=== PATIENT | male | born 1955 | race Caucasian/White ===

== ENCOUNTER 2021-08-15 20:37 | Emergency (ER) | payer BC ==
[~2021-08-15] VITALS: Ht 188 cm; Wt 95.2 kg
[2021-08-15 20:50] VITALS: BP 173/105
[2021-08-15] MEDS ORDERED: TETRACAINE 0.5% OPHTH SOLN 4 ML BTL (SINGLE DOSE ONLY) OU ONE (21:00)
[2021-08-15] MEDS ORDERED: BSS 15 ML IR ONE (21:00)
[2021-08-15] MEDS ORDERED: FLUORESCEIN (FLUOR-I-STRIPS) 1 MG STRP OU ONE (21:00)
--- NOTE | 2021-08-15 21:05 | ED EENT ---
History of Present Illness General Chief Complaint: Eye Problems Stated Complaint: R EYE IRRITATION Source: patient Exam Limitations: no limitations History of Present Illness Date Seen by Provider: Aug 15, 2021 Time Seen by Provider: 21:00 Initial Comments Patient is a 66-year-old male who presents to the emergency department today with a chief complaint of foreign body sensation to the right eye. He had been moving all day, plants and boxes and feels like something might have gotten into it. Patient was driving, felt like something was in his eye he went to rub the outside portion of it and it started tearing and he had increasing discomfort. Feels like the right eye is a little bit blurry. Visual acuity in the right eyes 20/50 in the left is 20/30. He has not irrigated it with anything or put any topical drops in it. He does not wear contacts or glasses. No recent illnesses, fevers, chills, cough or congestion. He is treated for hypertension. No local physician. All other review of systems reviewed and negative except as stated. Timing/Duration: abrupt Location: eye (R) Prearrival Treatment: no prearrival treatment Associated Symptoms: denies symptoms Allergies and Home Medications Allergies Coded Allergies: Sulfa (Sulfonamide Antibiotics) (Verified Allergy, Unknown, 08/15/21) Patient Home Medication List Home Medication List Reviewed: Yes Review of Systems Review of Systems Constitutional: see HPI Eyes: Decreased Acuity, Foreign Body Sensation ( ) Ears: No Symptoms Reported Nose: no symptoms reported Mouth: no symptoms reported Throat: no symptoms reported All Other Systems Reviewed Negative Unless Noted: Yes Visual Acuity : Eye Location: Right Vision Acuity Degree: 20/50 Physical Exam Vital Signs Vital Signs - First Documented 08/15/21 20:50 Temp 36.9 Pulse 75 Resp 20 B/P (MAP) 173/105 (127) Pulse Ox 98 Height, Weight, BMI Height: '" Weight: lbs. oz. kg; BMI Method: General Appearance: WD/WN, no apparent distress Eyes: right eye lid inflammation, right eye vision changes; bilateral eye normal inspection, bilateral eye PERRL, bilateral eye EOMI Ears: bilateral ear auricle normal Nose: normal inspection Mouth/Throat: normal mouth inspection Neck: supple, normal inspection Cardiovascular: regular rate, rhythm Respiratory: lungs clear, normal breath sounds, no respiratory distress Neurologic/Psychiatric: alert, normal mood/affect, oriented x 3 Skin: normal color, warm/dry Procedures/Interventions Eye : Location: right eye Anesthesia (gtts): Tetracaine Progress/Procedure Conclusion Slit lamp reveals superficial abrasions at 9 o'clock position; no obvious foreign body. no other uptake revealed Progress/Results/Core Measures Results/Orders My Orders Orders - AARON FOREMAN MD Tetracaine 0.5% Ophth Sheron Sdv (Tetracai (08/15/21 21:00) Fluorescein Strips (Dnfth-F-Cqaghy) (08/15/21 21:00) Balanced Salt Irrigation Soln (Bss Irrig (08/15/21 21:00) Medications Given in ED Current Medications Medications Dose Ordered Sig/[place] Route Start Time Stop Time Status Last Admin Dose Admin Balanced Salt Solution 15 ml ONCE ONCE IR 08/15/21 21:00 08/15/21 21:01 DC 08/15/21 21:07 15 ML Fluorescein Sodium 1 mg ONCE ONCE OU 08/15/21 21:00 08/15/21 21:01 DC 08/15/21 21:07 1 MG Tetracaine HCl 4 ml ONCE ONCE OU 08/15/21 21:00 08/15/21 21:01 DC 08/15/21 21:07 4 ML Vital Signs/I&O 08/15/21 20:50 Temp 36.9 Pulse 75 Resp 20 B/P (MAP) 173/105 (127) Pulse Ox 98 Departure Impression Primary Impression: Corneal abrasion Qualified Codes: S05.01XA - Injury of conjunctiva and corneal abrasion w ithout foreign body, right eye, initial encounter Disposition: HOME, SELF-CARE Condition: Stable Departure-Patient Inst. Decision time for Depature: 21:21 Referrals: PRANAY CLEMONS OD NO,LOCAL PHYSICIAN (PCP) Primary Care Physician Patient Instructions: Corneal Abrasion (DC) Add. Discharge Instructions: Cool compress to the right eye as needed. Antibiotic eye drops as directed the next 3-5 days. If you have increasing discomfort, redness, worsening blurry vision/drainage please return to the ED for re-evaluation, or follow up with an eye doctor. Over the counter Ibuprofen 600mg (3 200mg pills) every 6 hours with food for discomfort. Scripts Neomycin/Polymyxin B Sulf/Hc (Rmknaxpx-Rqrx-Dt Eye Drops) 7.5 Ml Drops.susp 2 DROP OP TID for 5 Days, #1.75 ML Prov: AARON FOREMAN MD 08/15/21 Images Eye 1 - Abrasion, Dye uptake (fluorescein) AARON FOREMAN MD Aug 15, 2021 21:05
[2021-08-15] MEDS ORDERED: POLYMYXIN B OP STA (21:23)
[2021-08-15] MEDS ORDERED: HYDROCORTISONE OP STA (21:23)
[2021-08-15] MEDS ORDERED: NEOMYCIN OP STA (21:23)
[2021-08-15] MEDS ORDERED: NEOM7.5D8 OP (21:26)
== END 2021-08-15 21:50 | disposition home or self-care (01) ==
LOC: ER 20:40
DX: S05.01XA Injury of conjunctiva and corneal abrasion without foreign body, right eye, initial encounter (principal); X58.XXXA Exposure to other specified factors, initial encounter
CPT/HCPCS: 99281